=== PATIENT | female | born 1965 | race Two or more races ===

== ENCOUNTER 2020-01-07 13:05 | Emergency (ER) | payer BC ==
[~2020-01-07] VITALS: Ht 165.1 cm; Wt 63.5 kg
[2020-01-07] MEDS ORDERED: ITCHY EYE5 ML OP (17:07)
[2020-01-07] MEDS ORDERED: BACIT-POLYMYXI3.5 GM OP (17:07)
== END 2020-01-07 17:25 ==
LOC: ER 13:05
DX: H10.211 Acute toxic conjunctivitis, right eye (principal)